=== PATIENT | female | born 1945 | race Caucasian/White ===

== ENCOUNTER 2017-08-27 18:00 | Emergency (ER) | payer OTHER, MEDICARE ==
[~2017-08-27] VITALS: Ht 165.1 cm; Wt 59.0 kg
[2017-08-27 18:03] VITALS: BP 176/80; PULSE 84; TEMP 36.7; O2SAT 97; Ht 165.1 cm; Wt 59.0 kg
[2017-08-27] MEDS ORDERED: OXYCODONE IR HOME PACK PO ONE (18:30)
[2017-08-27] MEDS ORDERED: OXYC1TAB3 PO (18:32)
[2017-08-27] MEDS ORDERED: METH4PAK PO (18:32)
--- NOTE | 2017-08-27 21:37 | EMERGENCY ROOM VISIT NOTE ---
ED Visit Note First contact with patient: 18:12 I have personally seen and evaluated the patient with the PA. I agree with the diagnosis and management decisions and have been personally involved in the case. Please see Eliseo Watkins PA-C's notes for further details of the history, physical and visit.
--- NOTE | 2017-08-27 23:11 | EMERGENCY ROOM VISIT NOTE ---
History First contact with patient: 18:12 Chief Complaint: LEG PAIN,LEG INJURY Stated Complaint: SCIATIC NERVE , LEFT LEG SEVERE PAIN History of Present Illness The patient is a 71 year old female who presents to the Emergency Room with complaints of left sciatic pain. The patient reports that she underwent a bilateral total knee replacement in March [address] Colon. The patient reports that she has had problems with her back and sciatica since her surgery. The patient reports that she moved here early last year, and her PCP, Dr. Wendy Chicas, performed x-rays of her back to show significant arthritic changes. The patient reports that she was not referred to orthopedics for her back, and never really had any problems until after her knee replacements. The patient denies any recent injury to her back. She reports paresthesias and numbness extending to the lateral ankle region. She has not noticed any weakness of the left lower extremity, foot drop, saddle anesthesias or bladder/ bowel difficulties/incontinence. The patient reports that she did have some leftover oxycodone from her surgery, and did not really have any significant relief of her discomfort. She currently rates her pain an 8 out of 10. Review of Systems 10 system review was performed and was negative except for pertinent positives and negatives as indicated in history of present illness Past Medical/Surgical History Medical Problems: (1) Breast cancer Surgical Problems: (1) History of arthroplasty of left shoulder (2) History of bilateral knee replacement (3) History of left mastectomy Family History FH: cancer FH: diabetes mellitus Social History Smoking Status: Never Smoker Alcohol Use: none Marital Status: Housing Status: lives alone Occupation Status: retired Current/Historical Medications Scheduled Methylprednisolone (Medrol Dosepak), 0 PO DAILY Scheduled PRN Oxycodone Ir (Roxicodone Ir), 1-2 TAB PO Q4H PRN for Pain Physical Exam Vital Signs Date Time Temp Pulse Resp B/P (MAP) Pulse Ox O2 Delivery O2 Flow Rate FiO2 08/27/17 18:03 36.7 84 20 176/80 97 Room Air Physical Exam CONSTITUTIONAL: Healthy and well nourished. Alert and oriented X 3 with positive affect. Patient appears in mild discomfort from pain. HEENT: Normocephalic, atraumatic. Pupils equal, round and reactive. NECK: Full active range of motion without discomfort. RESPIRATORY: Clear to auscultation bilaterally with no wheezing, crackles, rhonchi or stridor. CARDIOVASCULAR: Regular rate and rhythm with no murmurs, rubs or gallops. GASTROINTESTINAL: Bowel sounds present in all quadrants. Soft and nontender to palpation. MUSCULOSKELETAL: Examination shows generalized tenderness to palpation through the left SI joint. Positive sitting straight leg raise. Negative logroll. Bilateral knee surgical incisions have healed well without any erythema or tenderness to palpation. Ankle plantar/dorsiflexion strength is 4 out of 5 and symmetric bilaterally. Pedal pulses are intact. INTEGUMENTARY: No rash or other significant dermatologic conditions noted. NEUROLOGIC: No focal neurologic deficits noted. Lower extremities are sensory intact. Medical Decision & Procedures Laboratory Results Test 08/27/17 18:37 Bedside Glucose 78 mg/dl (70-90) Medications Administered Medications (Trade) Dose Ordered Sig/Zane Route Start Time Stop Time Status Last Admin Dose Admin Oxycodone HCl (Roxicodone Immediate Rel 5MG Home Pack) 1 homepack UD ONCE PO 08/27/17 18:30 08/27/17 18:31 DC 08/27/17 18:39 1 HOMEPACK Prednisone (PredniSONE TAB) 40 mg STK-MED ONCE .ROUTE 08/27/17 18:33 08/27/17 18:34 DC 08/27/17 18:39 40 MG Prednisone (PredniSONE TAB) 10 mg STK-MED ONCE .ROUTE 08/27/17 18:34 08/27/17 18:35 DC 08/27/17 18:40 10 MG ED Course Patient history and physical exam were performed. Nurse's notes were reviewed. Vital signs were reviewed and were normal. The patient refused any analgesics , stating that she needs to be able to drive home. She was administered prednisone 50 mg after ordering a bedside BSG that was 78. The patient will be provided a home pack for OxyIR 5 mg, and received prescriptions for a Medrol Dosepak and OxyIR 5 mg. The patient reports that this treatment in the past helped to completely resolve her sciatic symptoms. The patient was also seen and examined by Dr. Brady, ED attending physician, who agrees with workup and plan of care. The patient was encouraged to follow-up with her PCP for further management. She was also provided contact information for Dr. Fuller, [facility] surgeon. She was instructed to return to the emergency department for any progressively worsening pain, bladder/bowel incontinence, saddle anesthesias, left foot drop or other concerning symptoms. The patient was happy with plan of care, voiced understanding of all discharge instructions, and rated her discomfort a 6 out of 10 at the conclusion of my exam. Medical Decision [place] Drug Monitoring Program Search Results: patient reviewed within database, no issues identified Medication Reconcilliation Current Medication List: was personally reviewed by me Blood Pressure Screening Patient's blood pressure: Normal blood pressure Impression Primary Impression: Left sided sciatica Departure Information Dispostion Home / Self-Care Condition GOOD Prescriptions Methylprednisolone (MEDROL DOSEPAK) 4 Mg Lucho 0 PO DAILY, #1 PKT Prov: Eliseo Watkins PA 08/27/17 Oxycodone Ir (Roxicodone Ir) 5 Mg Tab 1-2 TAB PO Q4H Y for Pain, #15 TAB For Initial Treatment Prov: Eliseo Watkins PA 08/27/17 Referrals Renaldo Fuller,D.O. Forms HOME CARE DOCUMENTATION FORM, IMPORTANT VISIT INFORMATION Patient Instructions My [facility], ED Sciatica Additional Instructions Take Medrol Dosepak as prescribed, next dose tomorrow afternoon. Ibuprofen 800 mg and/or Tylenol 1000 mg every 8 hours. You may also alternate these medications for more effective pain relief: Ibuprofen --4 HRS--> Tylenol --4 HRS--> ibuprofen --4 HRS--> Tylenol .... OxyIR if needed for worse pain. Remember that OxyIR can make you drowsy and constipated. Follow-up with your family doctor for further reevaluation and management. You may also contact Dr. Fuller's office (spine surgeon) for further follow-up if your family doctor agrees with this assessment.
== END 2017-08-27 18:49 | disposition home or self-care (01) ==
LOC: C.EDB 18:01 → C.EDD 18:49
DX: M54.42 Lumbago with sciatica, left side (principal); Z83.3 Family history of diabetes mellitus